=== PATIENT | female | born 1940 | race Caucasian/White ===

== ENCOUNTER 2018-03-05 09:28 | Day surgery (SDC) | payer MEDICARE, OTHER ==
[2018-03-05] MEDS ORDERED: LIDOcaine 2% 5ml jelly ONE (09:49)
[2018-03-05] MEDS ORDERED: POTA20PA3 (10:08)
[2018-03-05] MEDS ORDERED: ASPI-1265 PO (10:08)
[2018-03-05] MEDS ORDERED: SYN0.088T PO (10:09)
[2018-03-05] MEDS ORDERED: LOSA25TA96 PO (10:10)
[2018-03-05] MEDS ORDERED: SIMV20TA5 PO (10:10)
[2018-03-05] MEDS ORDERED: METF500T PO (10:11)
[2018-03-05] MEDS ORDERED: BACL10TA PO (10:12)
[2018-03-05] MEDS ORDERED: DICL50TA8 PO (10:13)
[2018-03-05] MEDS ORDERED: BETA15CR40 TOP (10:14)
[2018-03-05] MEDS ORDERED: SULF-14 PO (10:14)
[2018-03-05] MEDS ORDERED: CYCL1DRO (10:15)
[2018-03-05] MEDS ORDERED: CLOT15CR73 TP (10:15)
[2018-03-05] MEDS ORDERED: CALC-258 (10:16)
[2018-03-05] MEDS ORDERED: MULT-38 PO (10:17)
== END 2018-03-05 11:02 | disposition home or self-care (01) ==
LOC: WOUND CARE 09:28
PROVIDERS: ATTEND Surgery
DX: L58.1 Chronic radiodermatitis (principal); L97.211 Non-pressure chronic ulcer of right calf limited to breakdown of skin; W88.1XXA Exposure to radioactive isotopes, initial encounter; Y92.89 Other specified places as the place of occurrence of the external cause
CPT/HCPCS: 36416; 82948; 97597; 99205; A6021; A6206; A6212

== ENCOUNTER 2018-03-12 09:25 | Day surgery (SDC) | payer MEDICARE, OTHER ==
[~2018-03-12 09:25] MED LIST: ASPI-1265 PO; BACL10TA PO; BETA15CR40 TOP; CALC-258; CLOT15CR73 TP; CYCL1DRO; DICL50TA8 PO; LOSA25TA96 PO; METF500T PO; MULT-38 PO; POTA20PA3; SIMV20TA5 PO; SULF-14 PO; SYN0.088T PO
[2018-03-12] MEDS ORDERED: LIDOcaine 2% 5ml jelly ONE (09:49)
== END 2018-03-12 11:11 | disposition home or self-care (01) ==
LOC: WOUND CARE 09:25
PROVIDERS: ATTEND Surgery
DX: L97.211 Non-pressure chronic ulcer of right calf limited to breakdown of skin (principal)
CPT/HCPCS: 93971; 97597; A6021; A6206; A6212

== ENCOUNTER 2018-03-21 09:30 | Day surgery (SDC) | payer MEDICARE, OTHER ==
[2018-03-21] MEDS ORDERED: LIDOcaine 2% 5ml jelly ONE (09:40)
== END 2018-03-21 11:39 | disposition home or self-care (01) ==
LOC: WOUND CARE 09:30
PROVIDERS: ATTEND Surgery
DX: L97.211 Non-pressure chronic ulcer of right calf limited to breakdown of skin (principal); L58.1 Chronic radiodermatitis; I83.012 Varicose veins of right lower extremity with ulcer of calf
CPT/HCPCS: 93971; 97597; A6446; A6441

== ENCOUNTER 2018-03-27 09:26 | Day surgery (SDC) | payer MEDICARE, OTHER ==
[2018-03-27] MEDS ORDERED: LIDOcaine 2% 5ml jelly ONE (09:53)
== END 2018-03-27 10:25 | disposition home or self-care (01) ==
LOC: WOUND CARE 09:26
PROVIDERS: ATTEND Surgery
DX: E11.622 Type 2 diabetes mellitus with other skin ulcer (principal); L97.211 Non-pressure chronic ulcer of right calf limited to breakdown of skin; I83.012 Varicose veins of right lower extremity with ulcer of calf; L58.1 Chronic radiodermatitis
CPT/HCPCS: 82948; 97597; A6021; A6206; A6212

== ENCOUNTER 2018-08-20 08:51 | Day surgery (SDC) | payer MEDICARE, OTHER ==
[~2018-08-20 08:51] MED LIST changes: -ASPI-1265 PO; -BACL10TA PO; -BETA15CR40 TOP; -CALC-258; -DICL50TA8 PO; +LEVO75TA7 PO; +LOSA100T15 PO; -LOSA25TA96 PO; -MULT-38 PO; -POTA20PA3; +POTA20PA40 PO; -SIMV20TA5 PO; +SIMV40TA PO; -SULF-14 PO; -SYN0.088T PO
[2018-08-20] MEDS ORDERED: BACL10TA2 (10:51)
[2018-08-20] MEDS ORDERED: DICL50TA14 (10:52)
[2018-08-20] MEDS ORDERED: PANT20TA3 PO (10:53)
[2018-08-20] MEDS ORDERED: ASPI-1265 PO (10:54)
== END 2018-08-20 11:38 | disposition home or self-care (01) ==
LOC: WOUND CARE 08:51
PROVIDERS: ATTEND Surgery
DX: E11.622 Type 2 diabetes mellitus with other skin ulcer (principal); L97.811 Non-pressure chronic ulcer of other part of right lower leg limited to breakdown of skin; E11.621 Type 2 diabetes mellitus with foot ulcer; L97.521 Non-pressure chronic ulcer of other part of left foot limited to breakdown of skin; I83.12 Varicose veins of left lower extremity with inflammation; I83.11 Varicose veins of right lower extremity with inflammation; L58.1 Chronic radiodermatitis
CPT/HCPCS: 97597; A6021; A6196; A6206; A6441

== ENCOUNTER 2018-08-27 08:30 | Day surgery (SDC) | payer MEDICARE, OTHER ==
[~2018-08-27 08:30] MED LIST changes: +ASPI-1265 PO; +BACL10TA2; +DICL50TA14; +PANT20TA3 PO
[2018-08-27] MEDS ORDERED: LIDOcaine/PRILOcaine 5gm cream TP ONE (09:44)
== END 2018-08-27 11:36 | disposition home or self-care (01) ==
LOC: WOUND CARE 08:30
PROVIDERS: ATTEND Surgery
DX: E11.622 Type 2 diabetes mellitus with other skin ulcer (principal); L97.811 Non-pressure chronic ulcer of other part of right lower leg limited to breakdown of skin; L97.821 Non-pressure chronic ulcer of other part of left lower leg limited to breakdown of skin; E11.621 Type 2 diabetes mellitus with foot ulcer; L97.521 Non-pressure chronic ulcer of other part of left foot limited to breakdown of skin; I83.12 Varicose veins of left lower extremity with inflammation; I83.11 Varicose veins of right lower extremity with inflammation; L58.1 Chronic radiodermatitis
CPT/HCPCS: 97597; A6021; A6206; A6212

== ENCOUNTER 2018-09-03 10:30 | Day surgery (SDC) | payer MEDICARE, OTHER | END 2018-09-03 12:55 | disposition home or self-care (01) | LOC: WOUND CARE 10:30 | PROVIDERS: ATTEND Surgery | DX: E11.622 Type 2 diabetes mellitus with other skin ulcer (principal); L97.811 Non-pressure chronic ulcer of other part of right lower leg limited to breakdown of skin; L97.821 Non-pressure chronic ulcer of other part of left lower leg limited to breakdown of skin; E11.621 Type 2 diabetes mellitus with foot ulcer; L97.521 Non-pressure chronic ulcer of other part of left foot limited to breakdown of skin; I83.12 Varicose veins of left lower extremity with inflammation; I83.11 Varicose veins of right lower extremity with inflammation; L58.1 Chronic radiodermatitis | CPT/HCPCS: 97597; A6021; A6196; A6206; A6441 ==

== ENCOUNTER 2024-08-26 10:17 | Day surgery (SDC) | payer MEDICARE, OTHER ==
[2024-08-21 12:08] LABS: BASOPHILS # (AUTO) 0.1 X10'3 (0-0.2); BASOPHILS % (AUTO) 1.2 % (0-1); EOSINOPHILS # (AUTO) 0.2 X10'3 (0-0.9); EOSINOPHILS % (AUTO) 3.7 % (0-6); LYMPHOCYTES # (AUTO) 1.5 X10'3 (1.1-4.8); LYMPHOCYTES % (AUTO) 24.6 % (21-51); MEAN CORPUSCULAR HEMOGLOBIN 31.2 PG (27.0-31.0); MEAN CORPUSCULAR HGB CONC 33.3 g/dL (33.0-36.5); MEAN CORPUSCULAR VOLUME 93.7 FL (78-98); MONOCYTES # (AUTO) 0.6 X10'3 (0-0.9); MONOCYTES % (AUTO) 9.2 % (2-12); NEUTROPHILS # (AUTO) 3.8 X10'3 (1.8-7.7); NEUTROPHILS % (AUTO) 61.3 % (42-75); PRE OP HEMATOCRIT 45.3 % (35.0-45.0); PRE OP HEMOGLOBIN 15.1 g/dL (12.0-16.0); PRE OP PLATELET COUNT 211 X10'3 (140-440); PRE OP WHITE BLOOD COUNT 6.2 10'3 (4.8-10.8); RED BLOOD COUNT 4.83 X10'6 (4.20-5.60); RED CELL DISTRIBUTION WIDTH 13.8 % (11.5-14.5)
[2024-08-21 12:20] LABS: ALBUMIN 3.6 G/DL (3.4-5.0); ALKALINE PHOSPHATASE 60 IU/L (46-116); BLOOD UREA NITROGEN 17 MG/DL (7-18); CALCIUM 9.6 MG/DL (8.5-10.1); CHLORIDE 105 MMOL/L (99-107); PRE OP ALT 29 U/L (30-65); PRE OP ANION GAP 6 (8-16); PRE OP AST 15 U/L (10-37); PRE OP BILIRUB, TOTAL 1.1 MG/DL (0.0-1.0); PRE OP GLUCOSE 136 MG/DL (70-104); PRE OP SODIUM 139 MMOL/L (135-145); TOTAL CARBON DIOXIDE 28.2 MMOL/L (24-32); TOTAL PROTEIN 7.2 G/DL (6.4-8.2); eGFR 53 ML/MIN
[~2024-08-26] VITALS: Ht 171.4 cm; Wt 89.5 kg
[2024-08-26] MEDS: DOCUMENT DATE & TIME OF BETA-BLOCKER PO ONE (05:30)
[~2024-08-26 10:17] MED LIST changes: +APIX5TAB3 PO; -ASPI-1265 PO; +ATOR10TA70 PO; -BACL10TA2; +BACL10TA2 PO; +BETA60LO TOP; +BUPIVAcaine 2.5mg/ml inj 50ml vial (contains preservative) ONE; -CLOT15CR73 TP; +CLOT30CR19 TOP; -CYCL1DRO; -DICL50TA14; +FLUT16SP26 BOTHNARES; +FURO40TA4 PO; +LEVO100T9 PO; -LEVO75TA7 PO; +LIDOcaine 2% (20mg/ml) 5ml vial ONE; -LOSA100T15 PO; +LOSA100T58 PO; -METF500T PO; +METO-395 PO; -PANT20TA3 PO; +SEMA14TA2 PO; -SIMV40TA PO
[2024-08-26 10:30] VITALS: BP 149/94; PULSE 72; RESP 16; TEMP 98.5; O2SAT 95
[2024-08-26] MEDS: famotidine 20mg tablet PO ONE (11:31)
[2024-08-26] MEDS: clindamycin-Cleocin 900mg/D5W 50 ML IV ONE (11:31)
[2024-08-26] MEDS: ringers solution, lacted 1,000 ML IV SCH (11:31)
[2024-08-26] MEDS ORDERED: morphine 4 MG/ML inj SYRINge IV PRN (12:15)
[2024-08-26] MEDS ORDERED: ondansetron/PF 4mg/2ml inj IV PRN (12:15)
[2024-08-26] MEDS ORDERED: morphine 2 MG/ML inj. syringe IV PRN (12:15)
[2024-08-26] MEDS ORDERED: meperidine/PF 25mg/ml syringe IV PRN ×3 (12:15)
[2024-08-26] MEDS ORDERED: ringers solution, lacted 1,000 ML IV SCH (12:15)
[2024-08-26] MEDS ORDERED: proCHLORperazine 10 MG/2 ml inj IV PRN (12:15)
[2024-08-26] MEDS ORDERED: fentaNYL/PF 50MCG/1 ML 2ML syringe ONE (13:00)
[2024-08-26] MEDS ORDERED: midazolam 1 mg/ML 2ml injection ONE (13:01)
[2024-08-26 13:16] VITALS: BP 159/83; PULSE 62; RESP 16; O2SAT 98
[2024-08-26 13:20] VITALS: BP 160/81; PULSE 64; RESP 16; O2SAT 94
[2024-08-26 13:30] VITALS: BP 158/82; PULSE 63; RESP 16; O2SAT 94
[2024-08-26 13:40] VITALS: BP 172/95; PULSE 66; RESP 15; O2SAT 92
== END 2024-08-26 14:06 | disposition home or self-care (01) ==
LOC: PAS 10:17
PROVIDERS: ATTEND Orthopaedic Surgery Hand Surgery
DX: G56.01 Carpal tunnel syndrome, right upper limb (principal); I10 Essential (primary) hypertension; E11.9 Type 2 diabetes mellitus without complications; E03.9 Hypothyroidism, unspecified; K21.9 Gastro-esophageal reflux disease without esophagitis; G47.33 Obstructive sleep apnea (adult) (pediatric); M19.90 Unspecified osteoarthritis, unspecified site; Z86.711 Personal history of pulmonary embolism; Z86.718 Personal history of other venous thrombosis and embolism; Z85.3 Personal history of malignant neoplasm of breast; Z79.01 Long term (current) use of anticoagulants; Z79.890 Hormone replacement therapy; Z79.891 Long term (current) use of opiate analgesic; Z79.899 Other long term (current) drug therapy; Z90.49 Acquired absence of other specified parts of digestive tract; Z90.89 Acquired absence of other organs; Z98.51 Tubal ligation status; Z98.890 Other specified postprocedural states; Z88.1 Allergy status to other antibiotic agents; Z88.8 Allergy status to other drugs, medicaments and biological substances
CPT/HCPCS: 36415; 64721; 80053; 82948; 85025; A4215; A6449; J2003; J2250; J3010; J3490; J7030; J7120; Z7506; Z7512

== ENCOUNTER 2024-11-18 05:31 | Day surgery (SDC) | payer MEDICARE, OTHER ==
[2024-11-14 14:17] LABS: BASOPHILS # (AUTO) 0.1 X10'3 (0-0.2); BASOPHILS % (AUTO) 1.3 % (0-1); EOSINOPHILS # (AUTO) 0.4 X10'3 (0-0.9); EOSINOPHILS % (AUTO) 5.9 % (0-6); HEMATOCRIT 43.6 % (35.0-45.0); HEMOGLOBIN 14.8 g/dl (12.0-16.0); LYMPHOCYTES # (AUTO) 1.8 X10'3 (1.1-4.8); LYMPHOCYTES % (AUTO) 26.2 % (21-51); MEAN CORPUSCULAR HEMOGLOBIN 31.4 PG (27.0-31.0); MEAN CORPUSCULAR VOLUME 92.4 FL (78-98); MEAN PLATELET VOLUME 7.8 FL (7.4-10.4); MONOCYTES # (AUTO) 0.9 X10'3 (0-0.9); MONOCYTES % (AUTO) 12.7 % (2-12); NEUTROPHILS # (AUTO) 3.7 X10'3 (1.8-7.7); NEUTROPHILS % (AUTO) 53.9 % (42-75); PLATELET COUNT 206 X10'3 (140-440); RED BLOOD COUNT 4.71 X10'6 (4.20-5.60); RED CELL DISTRIBUTION WIDTH 13.9 % (11.5-14.5); WHITE BLOOD COUNT 6.9 X10'3 (4.5-11.0)
[2024-11-14 14:33] LABS: ALANINE AMINOTRANSFERASE 38 U/L (12-78); ALBUMIN 3.4 G/DL (3.4-5.0); ALKALINE PHOSPHATASE 71 IU/L (46-116); ANION GAP 7 (8-16); ASPARTATE AMINO TRANSFERASE 22 U/L (10-37); BILIRUBIN,TOTAL 0.7 MG/DL (0.1-1.0); BLOOD UREA NITROGEN 25 MG/DL (7-18); BUN/CREATININE RATIO 26.9 (10.0-20.0); CALCIUM 9.5 MG/DL (8.5-10.1); CHLORIDE 107 MMOL/L (99-107); CREATININE 0.93 MG/DL (0.40-0.90); GLUCOSE 120 MG/DL (70-104); POTASSIUM 4.3 MMOL/L (3.5-5.1); SODIUM 144 MMOL/L (135-145); TOTAL CARBON DIOXIDE 30.2 MMOL/L (24-32); TOTAL PROTEIN 6.9 G/DL (6.4-8.2); eGFR 58 ML/MIN
[~2024-11-18] VITALS: Ht 172.7 cm; Wt 91.2 kg
[~2024-11-18 05:31] MED LIST changes: -BETA60LO TOP; -BUPIVAcaine 2.5mg/ml inj 50ml vial (contains preservative) ONE; -CLOT30CR19 TOP; +DICL50TA8 PO; -FLUT16SP26 BOTHNARES; +GABA300T28 PO; -LIDOcaine 2% (20mg/ml) 5ml vial ONE; +POTA-197 PO; +VITAMIN B 12; +VITAMIN D
[2024-11-18] MEDS: clindamycin 600mg/D5W 50ml 50 ML IV ONE (05:36)
[2024-11-18 05:40] VITALS: BP 136/78; PULSE 76; RESP 16; TEMP 98.6; O2SAT 96
[2024-11-18] MEDS: ringers solution, lacted 1,000 ML IV SCH (06:13)
[2024-11-18] MEDS: famotidine 20mg tablet PO ONE (06:13)
[2024-11-18] MEDS: DOCUMENT DATE & TIME OF BETA-BLOCKER PO ONE (06:16)
[2024-11-18] MEDS ORDERED: LIDOcaine 2% (20mg/ml) 5ml vial ONE (06:41)
[2024-11-18] MEDS ORDERED: BUPIVAcaine/PF 2.5mg/ml (0.25%) 10ml vial ONE (06:41)
[2024-11-18] MEDS ORDERED: BUPIVAcaine 2.5mg/ml inj 50ml vial (contains preservative) ONE (06:41)
[2024-11-18] MEDS ORDERED: morphine 2 MG/ML inj. syringe IV PRN (07:40)
[2024-11-18] MEDS ORDERED: ondansetron/PF 4mg/2ml inj IV PRN (07:40)
[2024-11-18] MEDS ORDERED: hydrALAZINE 20mg/ml inj. IV PRN (07:40)
[2024-11-18] MEDS ORDERED: ringers solution, lacted 1,000 ML IV SCH (07:40)
[2024-11-18] MEDS ORDERED: morphine 4 MG/ML inj SYRINge IV PRN (07:40)
[2024-11-18] MEDS ORDERED: midazolam 1 mg/ML 2ml injection ONE (07:49)
[2024-11-18] MEDS ORDERED: fentaNYL/PF 50MCG/1 ML 2ML syringe ONE (07:49)
[2024-11-18] MEDS ORDERED: propofol inj 20 ML IV ONE (07:51)
[2024-11-18 08:25] VITALS: BP 124/74; PULSE 72; RESP 16; O2SAT 93
[2024-11-18 08:40] VITALS: BP 126/71; PULSE 64; RESP 16; O2SAT 94
[2024-11-18 08:50] VITALS: BP 130/78; PULSE 63; RESP 14; O2SAT 94
[2024-11-18 09:00] VITALS: BP 132/78; PULSE 66; RESP 15; O2SAT 94
== END 2024-11-18 09:05 | disposition home or self-care (01) ==
LOC: PAS 05:31
PROVIDERS: ATTEND Orthopaedic Surgery Hand Surgery
DX: G56.02 Carpal tunnel syndrome, left upper limb (principal); I10 Essential (primary) hypertension; E11.9 Type 2 diabetes mellitus without complications; G47.33 Obstructive sleep apnea (adult) (pediatric); Z79.899 Other long term (current) drug therapy; M19.071 Primary osteoarthritis, right ankle and foot; M19.072 Primary osteoarthritis, left ankle and foot; M17.12 Unilateral primary osteoarthritis, left knee; Z98.890 Other specified postprocedural states; Z98.51 Tubal ligation status; Z80.8 Family history of malignant neoplasm of other organs or systems; Z72.89 Other problems related to lifestyle
CPT/HCPCS: 36415; 64721; 80053; 82948; 85025; A4215; A6449; J2003; J2250; J2704; J3010; J3490; J7030; J7120; Z7506; Z7512